=== PATIENT | male | born 1960 | race Caucasian/White ===

== ENCOUNTER → 2025-04-29 06:45 | Outpatient (REF) | payer MEDICARE, SELFPAY ==
[2025-04-29] VITALS (8 sets, daily range): BP systolic 78–105; BP diastolic 61–76
[2025-04-29 07:55] LABS: % Basophils 0.7 % (0-2); % Eosinophils 3.9 % (0-6); % Immature Granulocytes 0.4 % (0-0.5); % Lymphocytes 24.2 % (20.5-51.1); % Monocytes 9.5 % (1.7-9.3); % Neutrophils 61.3 % (42.2-75.2); Absolute Basophils 0.1 10^3/uL (0-0.2); Absolute Eosinophils 0.4 10^3/uL (0-0.7); Absolute Lymphocytes 2.3 10^3/uL (1.2-3.4); Absolute Monocytes 0.9 10^3/uL (0.1-0.6); Absolute Neutrophils 5.9 10^3/uL (1.4-6.5); Hematocrit 29.5 % (39.0-52.0); Hemoglobin 9.5 g/dL (13.0-18.0); Mean Corp Hgb Conc. 32.2 g/dL (33.0-37.0); Mean Corpuscular Hgb 25.7 pg (27.0-31.0); Mean Corpuscular Volume 79.7 fL (80.0-94.0); Mean Platelet Volume 8.1 fL (7.4-10.4); Nucleated Red Blood Cells % 0 % (-); Platelet Count 757 10^3/uL (130-400); Red Cell Dist. Width 16.3 % (11.5-14.5); White Blood Cell Count 9.7 10^3/uL (4.8-10.8)
[2025-04-29 08:13] LABS: INR 1.09; PT 14.7 Sec (11.4-14.6)
[2025-04-29] MEDS: NSS (PRESERVATIVE FREE) 0.25 ML IV (08:15)
[2025-04-29] MEDS: ATIVAN 0.5 MG IV (08:15)
[2025-04-29] MEDS: FLUSH (NSS) 1 FLUSH IV (08:15)
== END ==
LOC: RADI 06:45
PROVIDERS: ATTENDING PHYSICIAN Internal Medicine Hematology & Oncology; FAMILY PHYSICIAN Internal Medicine; REFERRING PHYSICIAN Physician Assistant
DX: D47.3 Essential (hemorrhagic) thrombocythemia (principal); D68.8 Other specified coagulation defects
CPT/HCPCS: 88305; 88311; 88312; 36415; 38222; 77012; 85025; 85610; 88313